=== PATIENT | male | born 1980 | race Caucasian/White ===

== ENCOUNTER 2021-08-14 19:42 | Emergency (ER) | payer OTHER ==
[~2021-08-14] VITALS: Ht 175.3 cm; Wt 101.6 kg
[2021-08-14] MEDS ORDERED: ASPIRIN81 MG PO (20:03)
[2021-08-14] MEDS ORDERED: VITAMIN D31250 MCG PO (20:03)
[2021-08-14] MEDS ORDERED: ADDERALL XR 2020 MG PO (20:04)
[2021-08-14] MEDS ORDERED: OMEPRAZOLE20 MG PO (20:04)
[2021-08-14] MEDS ORDERED: CORLANOR7.5 MG PO (20:05)
[2021-08-14] MEDS ORDERED: EFFEXOR XR150 MG PO (20:05)
[2021-08-14] MEDS ORDERED: ADDERALL 20 MG20 MG PO (20:05)
[2021-08-14] MEDS ORDERED: AZELASTINE137 MCG/0. NAS (20:06)
[2021-08-14] MEDS ORDERED: ALLOPURINOL300 MG PO (20:06)
[2021-08-14] MEDS ORDERED: VALIUM5 MG PO (20:07)
--- OUTSIDE RECORDS SUMMARY | 2021-08-14 22:04 | XMS ---
PreManage Notification: PEDRO TAPIA Security Alarm Security Or Surveillance Monitor Events No recent Security Events currently on file CRITERIA MET - [facility] CARE PROVIDERS DORA CHILDS [facility]/[place]: [facility] PHONE: [phone] HEIDI MOTA [facility] [place] Current PHONE: Unknown Kimber has no Care Guidelines for this patient. Christen VISIT COUNT (12 MO.) Vidhi Hdz TOTAL 1 NOTE: Visits indicate total known visits. ED/UCC VISIT TRACKING (12 MO.) 08/14/2021 19:42 [facility] TYPE: Emergency COMPLAINT: - HIGH HEART RATE INPATIENT VISIT TRACKING (12 MO.) 10/21/2020 07:22 [facility] TYPE: Surgery DIAGNOSES: - Paroxysmal atrial fibrillation - Tachycardia, unspecified [email or web address]
--- NOTE | 2021-08-15 06:24 | EKG ---
[facility] [address] [place], [place] [address] Signed Sinus tachycardia Otherwise normal ECG No previous ECGs available Confirmed by NABEEL LIU MD ([id number]) on 08/15/2021 6:23:58 AM Electronically Signed By: NABEEL LIU MD 08/15/21 0624 PATIENT NAME: PEDRO TAPIA Electrocardiogram DATE OF : 80 PHYSICIAN: NABEEL LIU MD REPORT #: [id number] REPORT IS CONFIDENTIAL AND NOT TO BE RELEASED WITHOUT AUTHORIZATION
== END 2021-08-14 22:12 | disposition home or self-care (01) ==
LOC: ED 19:42
DX: R00.2 Palpitations (principal); E87.6 Hypokalemia; R00.0 Tachycardia, unspecified; I48.91 Unspecified atrial fibrillation; G47.30 Sleep apnea, unspecified; Z79.82 Long term (current) use of aspirin; Z79.899 Other long term (current) drug therapy
CPT/HCPCS: 36415; 71045; 80053; 84484; 85025; 93005; 93010; 99285-25; A9270; J7030